=== PATIENT | male | born 1970 | race American Indian/Alaskan Native ===

== ENCOUNTER 2021-10-15 00:29 | Inpatient (IN) | payer BC ==
--- NOTE | 2021-10-15 01:23 | Emergency Department Report ---
HPI - General Chief Complaint: Chest Pain Time Seen by Provider: 10/15/21 00:48 - HPI HPI: Room 2 Patient is a 50-year-old male present with chief complaint of chest pain and palpitations. Patient states he was at rest watching television when he sudd enly developed shortness of breath palpitations and twisting pain in the middle of his chest. The patient was found to be tachycardic at 169 bpm by his . EMS was called and arrived on scene to find the patient in SVT. Patient broke the SVT by performing vagal maneuvers with EMS. In the ED the patient states he feels mostly improved but still has occasional intermittent discomfort in his ch est. Patient denies history of SVT in the past ED Past Medical Hx - Past Medical History Previous Medical History?: Yes Hx Heart Attack/AMI: Yes Hx Diabetes: Yes Additional medical history: heart murmur - Surgical History Past Surgical History?: No - Family History Family history: no significant - Social History Smoking Status: Never Smoker Substance Use Type: None (Denies illicit drug use) - Medications Home Medications: Home Medications Medication Instructions Recorded Confirmed Last Taken Type metFORMIN [Glucophage] 500 mg PO QDAY #31 tablet 11/17/15 Unknown Rx ED Review of Systems ROS: Stated complaint: CHEST PAIN Other details as noted in HPI Constitutional: no symptoms reported Eyes: denies: eye pain ENT: denies: throat pain Respiratory: cough, shortness of breath Cardiovascular: chest pain Endocrine: no symptoms reported Gastrointestinal: denies: vomiting Genitourinary: denies: dysuria Musculoskeletal: denies: back pain Neurological: denies: headache Physical Exam - Physical Exam Vital Signs: Vital Signs 10/15/21 00:30 Temperature 97.6 F Pulse Rate 108 H Respiratory 18 Rate Blood Pressure 149/99 O2 Sat by Pulse 98 Oximetry Physical Exam: GENERAL: The patient is well-developed well-nourished male lying on stretcher not appearing to be in acute distress. [] HEENT: Normocephalic. Atraumatic. Extraocular motions are intact. Patient has moist mucous membranes. NECK: Supple. Trachea midline CHEST/LUNGS: Clear to auscultation. There is no respiratory distress noted. HEART/CARDIOVASCULAR: Regular. There is no tachycardia. There is no gallop rub or murmur. ABDOMEN: Abdomen is soft, nontender. Patient has normal bowel sounds. There is no abdominal distention. SKIN: There is no rash. There is no edema. There is no diaphoresis. NEURO: The patient is awake, alert, and oriented. The patient is cooperative. The patient has no focal neurologic deficits. The patient has normal speech. GCS 15 MUSCULOSKELETAL:There is no evidence of acute injury. ED Course Vital Signs 10/15/21 00:30 Temperature 97.6 F Pulse Rate 108 H Respiratory 18 Rate Blood Pressure 149/99 O2 Sat by Pulse 98 Oximetry ED Medical Decision Making - Lab Data Result diagrams: 10/15/21 01:27 10/15/21 01:27 Laboratory Tests 10/15/21 10/15/21 10/15/21 01:27 01:27 01:27 WBC 7.2 RBC 4.48 Hgb 12.7 Hct 38.9 MCV 87 MCH 28 MCHC 33 RDW 13.6 Plt Count 242 Lymph % (Auto) 26.0 Rains % (Auto) 5.5 Eos % (Auto) 3.4 Baso % (Auto) 0.4 Lymph # (Auto) 1.9 Rains # (Auto) 0.4 Eos # (Auto) 0.2 Baso # (Auto) 0.0 Seg Neutrophils % 64.7 Seg Neutrophils # 4.6 Sodium 141 Potassium 3.6 Chloride 103.2 Carbon Dioxide 29 Anion Gap 12 BUN 14 Creatinine 1.2 Estimated GFR > 60 BUN/Creatinine Ratio 12 Glucose 124 H Calcium 9.3 Magnesium 1.70 Total Creatine Kinase 136 CK-MB (CK-2) 1.3 CK-MB (CK-2) Rel Index 0.9 Troponin T < 0.010 NT-Pro-B Natriuret Pep 70.73 TSH 2.690 Free T4 1.10 Urine Opiates Screen Urine Methadone Screen Ur Barbiturates Screen Ur Phencyclidine Scrn Ur Amphetamines Screen U Benzodiazepines Scrn Urine Cocaine Screen U Marijuana (THC) Screen Drugs of Abuse Note 10/15/21 02:00 WBC RBC Hgb Hct MCV MCH MCHC RDW Plt Count Lymph % (Auto) Rains % (Auto) Eos % (Auto) Baso % (Auto) Lymph # (Auto) Rains # (Auto) Eos # (Auto) Baso # (Auto) Seg Neutrophils % Seg Neutrophils # Sodium Potassium Chloride Carbon Dioxide Anion Gap BUN Creatinine Estimated GFR BUN/Creatinine Ratio Glucose Calcium Magnesium Total Creatine Kinase CK-MB (CK-2) CK-MB (CK-2) Rel Index Troponin T NT-Pro-B Natriuret Pep TSH Free T4 Urine Opiates Screen Presumptive negative Urine Methadone Screen Presumptive negative Ur Barbiturates Screen Presumptive negative Ur Phencyclidine Scrn Presumptive negative Ur Amphetamines Screen Presumptive negative U Benzodiazepines Scrn Presumptive negative Urine Cocaine Screen Presumptive negative U Marijuana (THC) Screen Presumptive negative Drugs of Abuse Note Disclamer - EKG Data -: EKG Interpreted by Me EKG shows normal: sinus rhythm Rate: tachycardia (100 bpm) - EKG Data When compared to previous EKG there are: previous EKG unavailable Interpretation: nonspecific ST-T wave janey (Flattened T waves in leads aVL, 1) - Radiology Data Radiology results: report reviewed (Chest x-ray), image reviewed (Chest x-ray) interpreted by me: Chest x-ray-no definite focal infiltrates, no pneumothorax [facility] [address] [place] [address] XRay Report Signed Patient: MERA PABLO MR#: [id number] : 1970 Acct:[id number] Age/Sex: 50 / M ADM Date: 10/15/21 Loc: ED Attending Dr: Ordering Physician: KIRSTIN PINEDA MD Date of Service: 10/15/21 Procedure(s): XR chest 1V ap Accession Number(s): [id number] cc: KIRSTIN PINEDA MD Fluoro Time In Minutes: CHEST 1 VIEW INDICATION / CLINICAL INFORMATION: chest pain. COMPARISON: None available. FINDINGS: SUPPORT DEVICES: None. HEART / MEDIASTINUM: Heart size is within normal limits. Mediastinal contour demonstrates no significant abnormality. LUNGS / PLEURA: No significant pulmonary abnormality. BONES: Remote right fifth rib fracture is suggested. ADDITIONAL FINDINGS: No significant additional findings. IMPRESSION: 1. No active cardiopulmonary disease. Signer Name: Taurus Eddy II, MD Signed: 10/15/2021 1:59 AM Workstation Name: [id number] Transcribed By: PARTH Dictated By: TAURUS EDDY II, MD Electronically Authenticated By: TAURUS EDDY II, MD Signed Date/Time: 10/15/21158 DD/ 8 TD/TT: - Differential Diagnosis SVT, ACS Critical care attestation.: If time is entered above; I have spent that time in minutes in the direct care of this critically ill patient, excluding procedure time. ED Disposition Clinical Impression: Paroxysmal SVT (supraventricular tachycardia), Chest pain Disposition: ADMITTED INPATIENT Is pt being admited?: Yes Does the pt Need Aspirin: Yes Condition: Fair Instructions: Nonspecific Chest Pain, Adult Time of Disposition: 02:44 (Care transferred to hospitalist (Dr. Kruger)) Heart Score - HEART Score History: Moderately suspicious EKG: Non-specific Age: 45-65 Risk factors: 1-2 risk factors Troponin: < normal limit HEART Score: 4 - EKG Read Time Time EKG Completed: 01:08 EKG Read Time: 01:22
[2021-10-15 01:51] LABS: Basophils % (Auto) 0.4 % (0.0-1.8); Eosinophils # (Auto) 0.2 K/mm3 (0.0-0.4); Eosinophils % (Auto) 3.4 % (0.0-4.3); Hematocrit 38.9 % (35.5-45.6); Hemoglobin 12.7 gm/dl (11.8-15.2); Lymphocytes # (Auto) 1.9 K/mm3 (1.2-5.4); Mean Corpuscular HGB Conc 33 % (32-34); Mean Corpuscular Volume 87 fl (84-94); Monocytes # (Auto) 0.4 K/mm3 (0.0-0.8); Monocytes % (Auto) 5.5 % (0.0-7.3); Platelet Count 242 K/mm3 (140-440); Red Blood Count 4.48 M/mm3 (3.65-5.03); Red Cell Distribution Width 13.6 % (13.2-15.2)
--- NOTE | 2021-10-15 02:03 | XRay Report ---
CHEST 1 VIEW INDICATION / CLINICAL INFORMATION: chest pain. COMPARISON: None available. FINDINGS: SUPPORT DEVICES: None. HEART / MEDIASTINUM: Heart size is within normal limits. Mediastinal contour demonstrates no signific ant abnormality. LUNGS / PLEURA: No significant pulmonary abnormality. BONES: Remote right fifth rib fracture is suggested. ADDITIONAL FINDINGS: No significant additional findings. IMPRESSION: 1. No active cardiopulmonary disease. Signer Name: Orville Howe II, MD Signed: 10/15/2021 1:59 AM Workstation Name: [id number]
[2021-10-15 02:09] LABS: BUN/Creatinine Ratio 12; Blood Urea Nitrogen 14 mg/dL (9-20); Calcium 9.3 mg/dL (8.4-10.2); Creatine Kinase MB 1.3 ng/mL (0.0-4.0); Hemolysis Index 7
[2021-10-15 02:21] LABS: Amphetamine Screen,Urine PRESUMPTIVE NEGATIVE; Benzodiazepines Screen,Urine PRESUMPTIVE NEGATIVE; Cannabinoid Screen,Urine PRESUMPTIVE NEGATIVE; Cocaine Screen,Urine PRESUMPTIVE NEGATIVE; Methadone Screen,Urine PRESUMPTIVE NEGATIVE; Opiate Screen,Urine PRESUMPTIVE NEGATIVE
[2021-10-15 02:30] LABS: Free T4 (Free Thyroxine) 1.1 ng/dL (0.76-1.46)
[2021-10-15] MEDS ORDERED: ACETAMINOPHEN 325 MG TAB PO PRN (05:09)
[2021-10-15] MEDS ORDERED: DEXTROSE 50% IN WATER (25GM) 50 ML SYRINGE IV PRN (05:09)
[2021-10-15] MEDS ORDERED: NITROGLYCERIN 0.4 MG TAB SUBL SL PRN (05:09)
[2021-10-15] MEDS ORDERED: MORPHINE 4 MG/1 ML INJ IV PRN (05:09)
[2021-10-15] MEDS ORDERED: traMADol 50 MG TAB PO PRN (05:09)
--- NOTE | 2021-10-15 05:17 | History and Physical Report ---
History of Present Illness Date of examination: 10/15/21 Date of admission: 10/15/21 Chief complaint: Chest pain SVT History of present illness: 50-year-old male with history of IA, diabetes, heart murmur was brought to the emergency room because of chest pain and palpitations. Patient states he was at rest watching television when he suddenly developed shortness of breath palpitations and twisting pain in the middle of his chest. The patient was found to be tachycardic at 169 bpm by his . EMS was called and arrived on scene to find the patient in SVT. Patient broke the SVT by performing vagal maneuvers with EMS. In the ED the patient states he feels mostly improved but still has occasional intermittent discomfort in his chest. Patient denies hist ory of SVT in the past In the emergency room initial troponin is negative troponin is 0.010 Past History Past Medical History: acute IA, diabetes, other (Heart murmur) Past Surgical History: No surgical history Social history: no significant social history Family history: hypertension Medications and Allergies Allergies Allergy/AdvReac Type Severity Reaction Status Date / Time No Known Allergies Allergy Unverified 11/16/15 19:50 Home Medications Medication Instructions Recorded Confirmed Last Taken Type metFORMIN [Glucophage] 500 mg PO QDAY #31 tablet 11/17/15 Unknown Rx Review of Systems All systems: negative Cardiovascular: chest pain, palpitations, shortness of breath, dyspnea on exertion Respiratory: shortness of breath, dyspnea on exertion Exam - Constitutional Vitals: Temp Pulse Resp BP Pulse Ox 97.6 F 105 H 20 144/82 100 10/15/21 00:30 10/15/21 04:30 10/15/21 04:30 10/15/21 04:30 10/15/21 04:30 General appearance: Present: no acute distress, well-nourished - EENT Eyes: Present: PERRL ENT: hearing intact, clear oral mucosa - Neck Neck: Present: supple, normal ROM - Respiratory Respiratory effort: normal Respiratory: bilateral: CTA - Cardiovascular Heart Sounds: Present: S1 & S2. Absent: rub, click - Extremities Extremities: pulses symmetrical, No edema Peripheral Pulses: within normal limits - Abdominal General gastrointestinal: Present: soft, non-tender, non-distended, normal bowel sounds Male genitourinary: Present: normal - Integumentary Integumentary: Present: clear, warm, dry - Musculoskeletal Musculoskeletal: gait normal, strength equal bilaterally - Psychiatric Psychiatric: appropriate mood/affect, intact judgment & insight - Neurologic Neurologic: CNII-XII intact, moves all extremities HEART Score - HEART Score EKG: Non-specific Age: 45-65 Risk factors: 1-2 risk factors Troponin: Troponin T < 0.010 ng/mL (0.00-0.029) 10/15/21: Troponin: < normal limit Results - Labs CBC & Chem 7: 10/15/21 01:27 10/15/21: Labs: Laboratory Last Values WBC 7.2 K/mm3 (4.5-11.0) 10/15/21: RBC 4.48 M/mm3 (3.65-5.03) 10/15/21: Hgb 12.7 gm/dl (11.8-15.2) 10/15/21: Hct 38.9 % (35.5-45.6) 10/15/21: MCV 87 fl (84-94) 10/15/21: MCH 28 pg (28-32) 10/15/21: MCHC 33 % (32-34) 10/15/21: RDW 13.6 % (13.2-15.2) 10/15/21: Plt Count 242 K/mm3 (140-440) 10/15/21: Lymph % (Auto) 26.0 % (13.4-35.0) 10/15/21: Dickinson % (Auto) 5.5 % (0.0-7.3) 10/15/21: Eos % (Auto) 3.4 % (0.0-4.3) 10/15/21: Baso % (Auto) 0.4 % (0.0-1.8) 10/15/21: Lymph # (Auto) 1.9 K/mm3 (1.2-5.4) 10/15/21: Dickinson # (Auto) 0.4 K/mm3 (0.0-0.8) 10/15/21: Eos # (Auto) 0.2 K/mm3 (0.0-0.4) 10/15/21 01:27 Baso # (Auto) 0.0 K/mm3 (0.0-0.1) 10/15/21 01:27 Seg Neutrophils % 64.7 % (40.0-70.0) 10/15/21 01:27 Seg Neutrophils # 4.6 K/mm3 (1.8-7.7) 10/15/21 01:27 Sodium 141 mmol/L (137-145) 10/15/21 01:27 Potassium 3.6 mmol/L (3.6-5.0) 10/15/21 01:27 Chloride 103.2 mmol/L (98-107) 10/15/21 01:27 Carbon Dioxide 29 mmol/L (22-30) 10/15/21 01:27 Anion Gap 12 mmol/L 10/15/21 01:27 BUN 14 mg/dL (9-20) 10/15/21 01:27 Creatinine 1.2 mg/dL (0.8-1.3) 10/15/21 01:27 Estimated GFR > 60 ml/min 10/15/21 01:27 BUN/Creatinine Ratio 12 % 10/15/21 01:27 Glucose 124 mg/dL (75-100) H 10/15/21 01:27 Calcium 9.3 mg/dL (8.4-10.2) 10/15/21 01:27 Magnesium 1.70 mg/dL (1.7-2.3) 10/15/21 01:27 Total Creatine Kinase 136 units/L (55-170) 10/15/21 01:27 CK-MB (CK-2) 1.3 ng/mL (0.0-4.0) 10/15/21 01:27 CK-MB (CK-2) Rel Index 0.9 (0-4) 10/15/21 01:27 Troponin T < 0.010 ng/mL (0.00-0.029) 10/15/21 01:27 NT-Pro-B Natriuret Pep 70.73 pg/mL (0-900) 10/15/21 01:27 TSH 2.690 mlU/mL (0.270-4.200) 10/15/21 01:27 Free T4 1.10 ng/dL (0.76-1.46) 10/15/21 01:27 Urine Opiates Screen Presumptive negative 10/15/21 02:00 Urine Methadone Screen Presumptive negative 10/15/21 02:00 Ur Barbiturates Screen Presumptive negative 10/15/21 02:00 Ur Phencyclidine Scrn Presumptive negative 10/15/21 02:00 Ur Amphetamines Screen Presumptive negative 10/15/21 02:00 U Benzodiazepines Scrn Presumptive negative 10/15/21 02:00 Urine Cocaine Screen Presumptive negative 10/15/21 02:00 U Marijuana (THC) Screen Presumptive negative 10/15/21 02:00 Drugs of Abuse Note Disclamer 10/15/21 02:00 - Imaging and Cardiology Chest x-ray: report reviewed Assessment and Plan VTE prophylaxis?: Chemical Plan of care discussed with patient/family: Yes - Patient Problems (1) ACS (acute coronary syndrome) Current Visit: Yes Status: Acute Plan to address problem: Admit the patient to the medical telemetry. Aspirin 325 mg p.o. daily. Lipitor 40 mg p.o. daily. Nitroglycerin as needed. Metoprolol 25 mg p.o. twice daily. We will do the serial cardiac enzymes. Echocardiogram. Cardiology evaluation (2) Diabetes Current Visit: Yes Status: Acute Plan to address problem: Accu-Chek every 6 hours with Humalog moderate dose coverage. Diabetic education. Recheck BMP in the morning (3) CAD (coronary artery disease) Current Visit: Yes Status: Acute Plan to address problem: Aspirin 325 mg p.o. daily. Lipitor 40 mg p.o. daily. Nitroglycerin as needed. Metoprolol 25 mg p.o. twice daily. We will do the serial cardiac enzymes. Echocardiogram. Cardiology evaluation (4) Paroxysmal SVT (supraventricular tachycardia) Current Visit: Yes Status: Acute Plan to address problem: Metoprolol 25 mg p.o. twice daily. We will do the serial cardiac enzymes. Echocardiogram. Cardiology evaluation (5) DVT prophylaxis Current Visit: Yes Status: Acute Plan to address problem: Heparin 5000 units subcu every 12 hours for DVT prophylaxis. Protonix 40 mg p.o. daily for GI prophylaxis. Patient is a full code
[2021-10-15] MEDS: INSULIN LISPRO 100 UNIT/ML SUB-Q SCH ×4 (06:00→23:48)
[2021-10-15] MEDS: SODIUM CHLORIDE 0.9% 1000 ML 1,000 ML IV SCH ×2 (06:13→14:37)
[2021-10-15 07:44] LABS: BUN/Creatinine Ratio 12; Blood Urea Nitrogen 13 mg/dL (9-20); Calcium 8.4 mg/dL (8.4-10.2); Hemolysis Index 3
[2021-10-15 07:49] LABS: Basophils % (Auto) 0.6 % (0.0-1.8); Eosinophils # (Auto) 0.3 K/mm3 (0.0-0.4); Hematocrit 36.8 % (35.5-45.6); Lymphocytes # (Auto) 1.5 K/mm3 (1.2-5.4); Lymphocytes % (Auto) 22.2 % (13.4-35.0); Mean Corpuscular HGB Conc 33 % (32-34); Mean Corpuscular Volume 86 fl (84-94); Monocytes # (Auto) 0.5 K/mm3 (0.0-0.8); Monocytes % (Auto) 7.1 % (0.0-7.3); Platelet Count 227 K/mm3 (140-440); Red Blood Count 4.28 M/mm3 (3.65-5.03); Red Cell Distribution Width 13.8 % (13.2-15.2)
[2021-10-15] MEDS: PANTOPRAZOLE 40 MG TAB PO SCH (08:41)
--- NOTE | 2021-10-15 09:45 | Progress Note ---
Assessment and Plan Assessment and plan: History of Present Illness: 50-year-old male with history of CO, diabetes, heart murmur was brought to the emergency room because of chest pain and palpitations. Patient states he was at rest watching television when he suddenly developed shortness of breath palpitations and twisting pain in the middle of his chest. The patient was found to be tachycardic at 169 bpm by his . EMS was called and arrived on scene to find the patient in SVT. Patient broke the SVT by performing vagal maneuvers with EMS. In the ED the patient states he feels mostly improved but still has occasional intermittent discomfort in his chest. Patient denies history of SVT in the past Hospital Course: 10/15: Trend troponin, pending echo ordered. Will follow for cardiology eval. Possible discharge tomorrow a.m. Assessment and Plan: #Paroxysmal SVT (supraventricular tachycardia) Current Visit: Yes Status: Acute Plan to address problem: Metoprolol 25 mg p.o. twice daily. We will do the serial cardiac enzymes. Echocardiogram. Cardiology evaluation #ACS (acute coronary syndrome) Current Visit: Yes Status: Acute Plan to address problem: Admit the patient to the medical telemetry. Aspirin 81 mg p.o. daily. Lipitor 40 mg p.o. daily. Nitroglycerin as needed. Metoprolol 25 mg p.o. twice daily. Troponin 0.01, trend every 6h Echocardiogram. Cardiology evaluation #CAD (coronary artery disease) Current Visit: Yes Status: Acute Plan to address problem: Medications as above Serial cardiac enzymes. Echocardiogram. Cardiology evaluation #History of CO #Type 2 Diabetes with Hyperglycemia - hemoglobin A1c: - home regimen: Unknown - current regimen: Moderate SSI - blood glucose goal 140-180 while inpatient - continue to monitor #History of heart murmur #Advance care planning Disease education conducted, care plan discussed, diagnoses discussed, prognosis discussed, patient is full code, patient acknowledges understanding and agree with care plan, discussed about patient clinical course and answered all questions to satisfaction. +30 minutes. +30 minutes. #Coordination of CARE time: 30 minutes. Total visit time equals 30 or more minutes with greater than 50% spent [id number] on coordination of care and counseling. History Interval history: No acute complaints Hospitalist Physical - Physical exam Narrative exam: Physical Exam: VITAL SIGNS: Reviewed. GENERAL: The patient appears normally developed, Vital signs as documented. HEAD: No signs of head trauma. EYES: Pupils are equal. Extraocular motions intact. EARS: Hearing grossly intact. MOUTH: Oropharynx is normal. NECK: No adenopathy, no JVD. CHEST: Chest with clear breath sounds bilaterally. No wheezes, rales, or rhonchi. CARDIAC: Regular rate and rhythm. S1 and S2, without murmurs, gallops, or rubs. VASCULAR: No Edema. Peripheral pulses normal and equal in all extremities. ABDOMEN: Soft, non tender and non distended. No rebound or guarding, and no masses palpated. Bowel Sounds normal. MUSCULOSKELETAL: Good range of motion of all major joints. Extremities without clubbing, cyanosis or edema. NEUROLOGIC EXAM: Alert and oriented x 4. no focal sensory or strength deficits. PSYCHIATRIC: Mood normal. SKIN: detail exam as documented in skin assessment - Constitutional Vitals: Temp Pulse Resp BP Pulse Ox 98.6 F 90 19 145/91 98 10/15/21 08:43 10/15/21 08:43 10/15/21 08:43 10/15/21 08:43 10/15/21 08:43 General appearance: Present: no acute distress, well-nourished HEART Score - HEART Score EKG: Non-specific Age: 45-65 Risk factors: 1-2 risk factors Troponin: Troponin T < 0.010 ng/mL (0.00-0.029) 10/15/21 01:27 Troponin: < normal limit Results - Labs CBC & Chem 7: 10/15/21 07:11 10/15/21 07:11 Labs: Laboratory Last Values WBC 6.9 K/mm3 (4.5-11.0) 10/15/21 07:11 RBC 4.28 M/mm3 (3.65-5.03) 10/15/21 07:11 Hgb 12.0 gm/dl (11.8-15.2) 10/15/21 07:11 Hct 36.8 % (35.5-45.6) 10/15/21 07:11 MCV 86 fl (84-94) 10/15/21 07:11 MCH 28 pg (28-32) 10/15/21 07:11 MCHC 33 % (32-34) 10/15/21 07:11 RDW 13.8 % (13.2-15.2) 10/15/21 07:11 Plt Count 227 K/mm3 (140-440) 10/15/21 07:11 Lymph % (Auto) 22.2 % (13.4-35.0) 10/15/21 07:11 Evans % (Auto) 7.1 % (0.0-7.3) 10/15/21 07:11 Eos % (Auto) 4.0 % (0.0-4.3) 10/15/21 07:11 Baso % (Auto) 0.6 % (0.0-1.8) 10/15/21 07:11 Lymph # (Auto) 1.5 K/mm3 (1.2-5.4) 10/15/21 07:11 Evans # (Auto) 0.5 K/mm3 (0.0-0.8) 10/15/21 07:11 Eos # (Auto) 0.3 K/mm3 (0.0-0.4) 10/15/21 07:11 Baso # (Auto) 0.0 K/mm3 (0.0-0.1) 10/15/21 07:11 Seg Neutrophils % 66.1 % (40.0-70.0) 10/15/21 07:11 Seg Neutrophils # 4.6 K/mm3 (1.8-7.7) 10/15/21 07:11 Sodium 142 mmol/L (137-145) 10/15/21 07:11 Potassium 3.6 mmol/L (3.6-5.0) 10/15/21 07:11 Chloride 105.7 mmol/L (98-107) 10/15/21 07:11 Carbon Dioxide 29 mmol/L (22-30) 10/15/21 07:11 Anion Gap 11 mmol/L 10/15/21 07:11 BUN 13 mg/dL (9-20) 10/15/21 07:11 Creatinine 1.1 mg/dL (0.8-1.3) 10/15/21 07:11 Estimated GFR > 60 ml/min 10/15/21 07:11 BUN/Creatinine Ratio 12 % 10/15/21 07:11 Glucose 131 mg/dL (75-100) H 10/15/21 07:11 Calcium 8.4 mg/dL (8.4-10.2) 10/15/21 07:11 Magnesium 1.70 mg/dL (1.7-2.3) 10/15/21 01:27 Total Creatine Kinase 136 units/L (55-170) 10/15/21 01:27 CK-MB (CK-2) 1.3 ng/mL (0.0-4.0) 10/15/21 01:27 CK-MB (CK-2) Rel Index 0.9 (0-4) 10/15/21 01:27 Troponin T < 0.010 ng/mL (0.00-0.029) 10/15/21 01:27 NT-Pro-B Natriuret Pep 70.73 pg/mL (0-900) 10/15/21 01:27 TSH 2.690 mlU/mL (0.270-4.200) 10/15/21 01: Free T4 1.10 ng/dL (0.76-1.46) 10/15/21 01:27 Urine Opiates Screen Presumptive negative 10/15/21 02:00 Urine Methadone Screen Presumptive negative 10/15/21 02:00 Ur Barbiturates Screen Presumptive negative 10/15/21 02:00 Ur Phencyclidine Scrn Presumptive negative 10/15/21 02:00 Ur Amphetamines Screen Presumptive negative 10/15/21 02:00 U Benzodiazepines Scrn Presumptive negative 10/15/21 02:00 Urine Cocaine Screen Presumptive negative 10/15/21 02:00 U Marijuana (THC) Screen Presumptive negative 10/15/21 02:00 Drugs of Abuse Note Disclamer 10/15/21 02:00 Active Medications - Current Medications Current Medications: Generic Name Dose Route Start Last Admin Trade Name Freq PRN Reason Stop Dose Admin Acetaminophen 650 mg 10/15/21 05:09 Acetaminophen 325 Mg Tab PO Q6H PRN Pain, Mild (1-3) Aspirin 325 mg 10/16/21 10:00 Aspirin Ec 325 Mg Tab PO QDAY SHYAM Atorvastatin Calcium 40 mg 10/15/21 22:00 Atorvastatin 40 Mg Tab PO QHS SHYAM Dextrose 50 ml 10/15/21 05:09 Dextrose 50% In Water (25gm) 50 Ml Syringe IV Q30MIN PRN Hypoglycemia Protocol Heparin Sodium (Porcine) 5,000 unit 10/15/21 10:00 Heparin 5,000 Unit/1 Ml Vial SUB-Q Q12HR SHYAM Sodium Chloride 1,000 mls @ 100 mls/hr 10/15/21 05:15 10/15/21 06:13 Nacl 0.9% 1000 Ml IV 100 mls/hr DIRECT SHYAM Administration Insulin Human Lispro 0 unit 10/15/21 06:00 10/15/21 06:00 Insulin Lispro 100 Unit/Ml SUB-Q Not Given Q6HR [facility] Protocol Metoprolol Tartrate 25 mg 10/15/21 10:00 Metoprolol Tartrate 25 Mg Tab PO BID [facility] Morphine Sulfate 2 mg 10/15/21 05:09 Morphine 4 Mg/1 Ml Inj IV Q5MIN PRN Chest Pain unrelieved by NTG Nitroglycerin 0.4 mg 10/15/21 05:09 Nitroglycerin 0.4 Mg Tab Subl SL Q5M PRN Chest Pain Pantoprazole Sodium 40 mg 10/15/21 07:30 10/15/21 08:41 Pantoprazole 40 Mg Tab PO 40 mg QDAC SHYAM Administration Sodium Chloride 10 ml 10/15/21 05:09 Sodium Chloride 0.9% 10 Ml Flush Syringe IV PRN PRN LINE FLUSH Tramadol HCl 50 mg 10/15/21 05:09 Tramadol 50 Mg Tab PO Q6H PRN Pain, Moderate (4-6)
[2021-10-15] MEDS: METOPROLOL TARTRATE 25 MG TAB PO SCH ×2 (10:26→21:30)
[2021-10-15] MEDS: HEPARIN 5,000 UNIT/1 ML VIAL SUB-Q SCH ×2 (10:26→21:30)
[2021-10-15] MEDS: ASPIRIN EC 81 MG TAB PO SCH (11:14)
--- NOTE | 2021-10-15 12:35 | Consultation ---
History of Present Illness Consult date: 10/15/21 Requesting physician: PJ SERNA Consult reason: other (SVT) History of present illness: Pt is a 50-year-old AA male with a hx of VT (in his 20s per pt report) and DM2 who presented with complaints of palpitations. Pt states he was sitting on the couch watching TV with his daughter when his heart suddenly started "racing and fluttering." Associated with SOB. He also reports an intermittent pain in the center of his chest which he describes as "someone twisting a knife." His reported his HR was 169bpm. The palpitations lasted approximately 45min before resolving. Per ER documentation, pt was in SVT upon initial eval by EMS, which was terminated via vagal maneuvers according to documentation. ECG upon arrival reveals sinus rhythm with a rate of 100bpm. Pt has continued to experience chest pain intermittently since arrival, with each episode lasting only a few min. Pt is previously unknown to our practice. Of note, pt does report being told he had a murmur in childhood but is unaware of any underlying valvulopathy. He is also unsure if he underwent coronary angiography at the time of his reported VT in his 20s. He states "I was in the hospital for a few weeks." Past History Past Medical History: acute VT, diabetes, other (TIA, heart murmur). denies: a trial fib, arrhythmia, DVT, heart failure, hypertension, hyperlipidemia, liver disease, pulmonary embolism, renal failure, seizures Past Surgical History: No surgical history Social history: , lives with family. denies: smoking, alcohol abuse Family history: hypertension Medications and Allergies Allergies Allergy/AdvReac Type Severity Reaction Status Date / Time No Known Allergies Allergy Unverified 11/16/15 19:50 Home Medications Medication Instructions Recorded Confirmed Last Taken Type metFORMIN [Glucophage] 500 mg PO QDAY #31 tablet 11/17/15 Unknown Rx Active Meds: Active Medications Acetaminophen (Acetaminophen 325 Mg Tab) 650 mg PO Q6H PRN PRN Reason: Pain, Mild (1-3) Aspirin (Aspirin Ec 81 Mg Tab) 81 mg PO QDAY [facility] Last Admin: 10/15/21 11:14 Dose: 81 mg Atorvastatin Calcium (Atorvastatin 40 Mg Tab) 40 mg PO QHS [facility] Dextrose (Dextrose 50% In Water (25gm) 50 Ml Syringe) 50 ml IV Q30MIN PRN; Protocol PRN Reason: Hypoglycemia Heparin Sodium (Porcine) (Heparin 5,000 Unit/1 Ml Vial) 5,000 unit SUB-Q Q12HR [facility] Last Admin: 10/15/21 10:26 Dose: 5,000 unit Sodium Chloride (Nacl 0.9% 1000 Ml) 1,000 mls @ 100 mls/hr IV DIRECT [facility] Last Admin: 10/15/21 06:13 Dose: 100 mls/hr Insulin Human Lispro (Insulin Lispro 100 Unit/Ml) 0 unit SUB-Q Q6HR [facility]; Protocol Last Admin: 10/15/21 06:00 Dose: Not Given Metoprolol Tartrate (Metoprolol Tartrate 25 Mg Tab) 25 mg PO BID [facility] Last Admin: 10/15/21 10:26 Dose: 25 mg Morphine Sulfate (Morphine 4 Mg/1 Ml Inj) 2 mg IV Q5MIN PRN PRN Reason: Chest Pain unrelieved by NTG Nitroglycerin (Nitroglycerin 0.4 Mg Tab Subl) 0.4 mg SL Q5M PRN PRN Reason: Chest Pain Pantoprazole Sodium (Pantoprazole 40 Mg Tab) 40 mg PO QDAC [facility] Last Admin: 10/15/21 08:41 Dose: 40 mg Sodium Chloride (Sodium Chloride 0.9% 10 Ml Flush Syringe) 10 ml IV PRN PRN PRN Reason: LINE FLUSH Tramadol HCl (Tramadol 50 Mg Tab) 50 mg PO Q6H PRN PRN Reason: Pain, Moderate (4-6) Review of Systems Constitutional: no fever, no chills, no sweats Ears, nose, mouth and throat: no nasal congestion, no sore throat Cardiovascular: chest pain, palpitations, rapid/irregular heart beat, no edema, no syncope, no lightheadedness, no shortness of breath, no dyspnea on exertion, no claudication Respiratory: no cough, no shortness of breath, no dyspnea on exertion Gastrointestinal: no abdominal pain, no nausea, no vomiting, no diarrhea, no constipation Genitourinary Male: no dysuria Musculoskeletal: no neck stiffness, no neck pain, no myalgias Integumentary: no rash, no wounds Neurological: no paralysis, no numbness, no tingling, no seizures, no syncope, no vertigo, no headaches Endocrine: no cold intolerance, no heat intolerance Hematologic/Lymphatic: no easy bruising, no easy bleeding Allergic/Immunologic: no anaphylaxis Physical Examination Vital Signs Temp Pulse Resp BP Pulse Ox 97.6 F 108 H 18 149/99 98 10/15/21 00:30 10/15/21 00:30 10/15/21 00:30 10/15/21 00:30 10/15/21 00:30 General appearance: no acute distress HEENT: Positive: EOMI, Normocephaly Neck: Positive: neck supple, trachea midline. Negative: JVD/HJR Cardiac: Positive: Reg Rate and Rhythm, S1/S2. Negative: Audible Murmur Lungs: Positive: clear to auscultation Neuro: Positive: Grossly Intact Abdomen: Positive: Soft. Negative: Tender Skin: Negative: Rash Musculoskeletal: No Pain Extremities: Present: upper extr. pulses, warm. Absent: edema Results 10/15/21 07:11 10/15/21 07:11 Cardiac Enzymes 10/15/21 Range/Units 01:27 CK-MB (CK-2) 1.3 (0.0-4.0) ng/mL CBC 10/15/21 10/15/21 Range/Units 01:27 07:11 WBC 7.2 6.9 (4.5-11.0) K/mm3 RBC 4.48 4.28 (3.65-5.03) M/mm3 Hgb 12.7 12.0 (11.8-15.2) gm/dl Hct 38.9 36.8 (35.5-45.6) % Plt Count 242 227 (140-440) K/mm3 Lymph # (Auto) 1.9 1.5 (1.2-5.4) K/mm3 Cooper # (Auto) 0.4 0.5 (0.0-0.8) K/mm3 Eos # (Auto) 0.2 0.3 (0.0-0.4) K/mm3 Baso # (Auto) 0.0 0.0 (0.0-0.1) K/mm3 Comprehensive Metabolic Panel 10/15/21 10/15/21 Range/Units 01:27 07:11 Sodium 141 142 (137-145) mmol/L Potassium 3.6 3.6 (3.6-5.0) mmol/L Chloride 103.2 105.7 (98-107) mmol/L Carbon Dioxide 29 29 (22-30) mmol/L BUN 14 13 (9-20) mg/dL Creatinine 1.2 1.1 (0.8-1.3) mg/dL Glucose 124 H 131 H (75-100) mg/dL Calcium 9.3 8.4 (8.4-10.2) mg/dL - Imaging and Cardiology Echo: pending EKG: report reviewed, image reviewed - EKG Interpretation EKG: no acute changes EKG interpretations - Telemetry EKG Rhythm: Sinus Rhythm - EKG Sinus rhythms and dysrhythmias: sinus tachycardia Assessment and Plan Assessment: SVT Chest Pain H/o VT (in his 20s per pt report) ?CAD (pt is unsure of dx and/or any prior stent placement) DM2 H/o TIA (~2003 per pt report) Plan: Review of tele strips on chart confirms SVT. Currently maintaining sinus rhythm. Echo pending. Continue tele monitoring. Agree with Lopressor 25mg BID. Thyroid function and electrolytes within normal limits. Tn neg x 1. ECG reveals NSR w/rate of 100bpm, no acute ischemic changes. Trend cardiac enzymes. Pt seen in conjunction with Dr. Copeland, who agrees with the assessment and plan of care. - Patient Problems (1) SVT (supraventricular tachycardia) Current Visit: Yes Status: Acute (2) Chest pain Current Visit: Yes Status: Acute
[2021-10-15 14:38] LABS: Chol/HDL Ratio 2.59 %
[2021-10-16] MEDS: SODIUM CHLORIDE 0.9% 1000 ML 1,000 ML IV SCH (00:22)
[2021-10-16] MEDS: INSULIN LISPRO 100 UNIT/ML SUB-Q SCH ×4 (07:32→21:22)
[2021-10-16] MEDS: HEPARIN 5,000 UNIT/1 ML VIAL SUB-Q SCH ×2 (09:37→21:23)
[2021-10-16] MEDS: PANTOPRAZOLE 40 MG TAB PO SCH (09:37)
[2021-10-16] MEDS: METOPROLOL TARTRATE 25 MG TAB PO SCH ×2 (09:37→21:22)
[2021-10-16] MEDS: ASPIRIN EC 81 MG TAB PO SCH (09:37)
--- NOTE | 2021-10-16 09:38 | Progress Note ---
Assessment and Plan Assessment: SVT Chest Pain H/o AZ (in his 20s per pt report) ?CAD (pt is unsure of dx and/or any prior stent placement) DM2 H/o TIA (~2003 per pt report) Plan: Echo pending. Plan for Lexiscan stress MPI in AM. NPO after midnight. Review of tele strips from EMS confirms SVT. Currently maintaining NSR. Continue PO Lopressor 25mg BID. Thyroid function and electrolytes within normal limits. Pt seen in conjunction with Dr. Copeland, who agrees with the assessment and plan of care. - Patient Problems (1) SVT (supraventricular tachycardia) Current Visit: Yes Status: Acute (2) Chest pain Current Visit: Yes Status: Acute Subjective Date of service: 10/16/21 Principal diagnosis: SVT Interval history: Reports 2 more brief episodes of chest pain since yesterday. Chest pain-free on assessment. No other complaints. SR 70s on tele, no events. Objective Vital Signs Temp Pulse Resp BP Pulse Ox 10/16/21 07:36 100 10/16/21 04:42 98.0 F 70 16 138/86 99 10/16/21 01:11 153/88 97 10/16/21 01:01 78 14 153/88 97 10/16/21 00:51 77 18 153/88 97 10/16/21 00:41 80 14 129/90 96 10/16/21 00:31 81 15 129/90 98 10/16/21 00:21 73 24 129/90 98 10/16/21 00:11 78 26 H 129/90 98 10/16/21 00:01 78 11 L 129/90 99 10/15/21 23:51 81 13 129/90 100 10/15/21 23:41 78 13 127/81 100 10/15/21 23:31 83 13 127/81 98 10/15/21 23:21 81 19 127/81 100 10/15/21 23:11 88 12 127/81 99 10/15/21 23:01 84 19 127/81 97 10/15/21 23:00 73 10/15/21 22:51 88 24 127/81 98 10/15/21 22:41 86 12 154/89 97 10/15/21 22:31 85 14 154/89 96 10/15/21 22:21 89 14 154/89 97 10/15/21 22:15 154/89 10/15/21 22:04 100 10/15/21 20:09 98.5 F 73 16 148/82 100 10/15/21 18:01 96/53 94 10/15/21 17:51 96/53 95 10/15/21 17:41 138/72 95 10/15/21 17:31 138/72 96 10/15/21 17:21 138/72 94 10/15/21 17:15 138/72 97 10/15/21 17:00 134/71 98 10/15/21 16:50 134/71 98 10/15/21 16:41 134/71 98 10/15/21 16:31 134/71 97 10/15/21 16:21 134/71 98 10/15/21 16:11 134/71 97 10/15/21 16:01 134/71 98 10/15/21 15:51 134/71 98 10/15/21 15:41 137/84 98 10/15/21 15:31 120/71 100 10/15/21 15:21 120/71 98 10/15/21 15:14 120/71 98 10/15/21 14:51 20 96 10/15/21 13:20 81 19 137/84 10/15/21 13:01 86 16 137/84 10/15/21 12:45 82 14 134/76 10/15/21 12:31 78 14 140/83 10/15/21 12:16 102 H 15 134/76 10/15/21 12:00 75 13 150/92 10/15/21 11:46 91 H 21 142/87 10/15/21 11:30 76 14 150/88 10/15/21 11:16 82 13 150/88 10/15/21 11:00 84 15 145/92 10/15/21 10:46 89 14 145/92 10/15/21 10:30 100 H 27 H 138/83 10/15/21 10:16 94 H 15 138/83 10/15/21 10:00 87 16 130/84 10/15/21 09:46 90 13 130/84 - Physical Examination General: No Apparent Distress HEENT: Positive: EOMI, Normocephaly Neck: Positive: neck supple, trachea midline. Negative: JVD/HJR Cardiac: Positive: Reg Rate and Rhythm, S1/S2 Lungs: Positive: clear to auscultation Neuro: Positive: Grossly Intact Abdomen: Positive: Soft. Negative: Tender Skin: Negative: Rash Musculoskeletal: No Pain Extremities: Present: upper extr. pulses, warm. Absent: edema - Labs and Meds Lipids 10/15/21 Range/Units 12:31 Triglycerides 31 (2-149) mg/dL Cholesterol 140 (50-199) mg/dL HDL Cholesterol 54 (40-59) mg/dL Cholesterol/HDL Ratio 2.59 % - Imaging and Cardiology EKG: report reviewed, image reviewed Pharmacologic stress test: pending Echo: pending - Telemetry EKG Rhythm: Sinus Rhythm - EKG Sinus rhythms and dysrhythmias: sinus tachycardia
--- NOTE | 2021-10-16 09:56 | Progress Note ---
Assessment and Plan Assessment and plan: History of Present Illness: 50-year-old male with history of OK, diabetes, heart murmur was brought to the emergency room because of chest pain and palpitations. Patient states he was at rest watching television when he suddenly developed shortness of breath palpitations and twisting pain in the middle of his chest. The patient was found to be tachycardic at 169 bpm by his . EMS was called and arrived on scene to find the patient in SVT. Patient broke the SVT by performing vagal maneuvers with EMS. In the ED the patient states he feels mostly improved but still has occasional intermittent discomfort in his chest. Patient denies history of SVT in the past Hospital Course: 10/15: Trend troponin, pending echo ordered. Will follow for cardiology eval. Possible discharge tomorrow a.m. 10/16: cardiology recommends NM stress, NPO midnight. Assessment and Plan: #Paroxysmal SVT (supraventricular tachycardia) Current Visit: Yes Status: Acute Plan to address problem: Metoprolol 25 mg p.o. twice daily. We will do the serial cardiac enzymes. Echocardiogram. Cardiology evaluation cardiology recommends NM stress, NPO midnight. #ACS (acute coronary syndrome) Current Visit: Yes Status: Acute Plan to address problem: Admit the patient to the medical telemetry. Aspirin 81 mg p.o. daily. Lipitor 40 mg p.o. daily. Nitroglycerin as needed. Metoprolol 25 mg p.o. twice daily. Troponin 0.01, trend every 6h Echocardiogram. Cardiology evaluation, cardiology recommends NM stress. NPO midnight. #CAD (coronary artery disease) Current Visit: Yes Status: Acute Plan to address problem: Medications as above Serial cardiac enzymes. Echocardiogram. Cardiology evaluation #History of OK #Type 2 Diabetes with Hyperglycemia - hemoglobin A1c: - home regimen: Unknown - current regimen: Moderate SSI - blood glucose goal 140-180 while inpatient - continue to monitor #History of heart murmur #Advance care planning Disease education conducted, care plan discussed, diagnoses discussed, prognosis discussed, patient is full code, patient acknowledges understanding and agree with care plan, discussed about patient clinical course and answered all questions to satisfaction. +30 minutes. +30 minutes. Total Time Spent with Patient (Minutes): 45 History Interval history: No acute complaints Hospitalist Physical - Physical exam Narrative exam: Physical Exam: VITAL SIGNS: Reviewed. GENERAL: The patient appears normally developed, Vital signs as documented. HEAD: No signs of head trauma. EYES: Pupils are equal. Extraocular motions intact. EARS: Hearing grossly intact. MOUTH: Oropharynx is normal. NECK: No adenopathy, no JVD. CHEST: Chest with clear breath sounds bilaterally. No wheezes, rales, or rhonchi. CARDIAC: Regular rate and rhythm. S1 and S2, without murmurs, gallops, or rubs. VASCULAR: No Edema. Peripheral pulses normal and equal in all extremities. ABDOMEN: Soft, non tender and non distended. No rebound or guarding, and no masses palpated. Bowel Sounds normal. MUSCULOSKELETAL: Good range of motion of all major joints. Extremities without clubbing, cyanosis or edema. NEUROLOGIC EXAM: Alert and oriented x 4. no focal sensory or strength deficits. PSYCHIATRIC: Mood normal. SKIN: detail exam as documented in skin assessment - Constitutional Vitals: Temp Pulse Resp BP Pulse Ox 98.0 F 70 16 138/86 100 10/16/21 04:42 10/16/21 04:42 10/16/21 04:42 10/16/21 04:42 10/16/21 07:36 General appearance: Present: no acute distress, well-nourished HEART Score - HEART Score EKG: Non-specific Age: 45-65 Risk factors: 1-2 risk factors Troponin: Troponin T < 0.010 ng/mL (0.00-0.029) 10/15/21 15:15 Troponin: < normal limit Results - Labs CBC & Chem 7: 10/15/21 07:11 10/15/21 07:11 Labs: Laboratory Last Values WBC 6.9 K/mm3 (4.5-11.0) 10/15/21 07:11 RBC 4.28 M/mm3 (3.65-5.03) 10/15/21 07:11 Hgb 12.0 gm/dl (11.8-15.2) 10/15/21 07:11 Hct 36.8 % (35.5-45.6) 10/15/21 07:11 MCV 86 fl (84-94) 10/15/21 07:11 MCH 28 pg (28-32) 10/15/21 07:11 MCHC 33 % (32-34) 10/15/21 07:11 RDW 13.8 % (13.2-15.2) 10/15/21 07:11 Plt Count 227 K/mm3 (140-440) 10/15/21 07:11 Lymph % (Auto) 22.2 % (13.4-35.0) 10/15/21 07:11 Worth % (Auto) 7.1 % (0.0-7.3) 10/15/21 07:11 Eos % (Auto) 4.0 % (0.0-4.3) 10/15/21 07:11 Baso % (Auto) 0.6 % (0.0-1.8) 10/15/21 07:11 Lymph # (Auto) 1.5 K/mm3 (1.2-5.4) 10/15/21 07:11 Worth # (Auto) 0.5 K/mm3 (0.0-0.8) 10/15/21 07:11 Eos # (Auto) 0.3 K/mm3 (0.0-0.4) 10/15/21 07:11 Baso # (Auto) 0.0 K/mm3 (0.0-0.1) 10/15/21 07:11 Seg Neutrophils % 66.1 % (40.0-70.0) 10/15/21 07:11 Seg Neutrophils # 4.6 K/mm3 (1.8-7.7) 10/15/21 07:11 Sodium 142 mmol/L (137-145) 10/15/21 07:11 Potassium 3.6 mmol/L (3.6-5.0) 10/15/21 07:11 Chloride 105.7 mmol/L (98-107) 10/15/21 07:11 Carbon Dioxide 29 mmol/L (22-30) 10/15/21 07:11 Anion Gap 11 mmol/L 10/15/21 07:11 BUN 13 mg/dL (9-20) 10/15/21 07:11 Creatinine 1.1 mg/dL (0.8-1.3) 10/15/21 07:11 Estimated GFR > 60 ml/min 10/15/21 07:11 BUN/Creatinine Ratio 12 % 10/15/21 07:11 Glucose 131 mg/dL (75-100) H 10/15/21 07:11 POC Glucose 97 mg/dL (70-105) 10/16/21 05:26 Calcium 8.4 mg/dL (8.4-10.2) 10/15/21 07:11 Magnesium 1.70 mg/dL (1.7-2.3) 10/15/21 01:27 Total Creatine Kinase 136 units/L (55-170) 10/15/21 01:27 CK-MB (CK-2) 1.3 ng/mL (0.0-4.0) 10/15/21 01:27 CK-MB (CK-2) Rel Index 0.9 (0-4) 10/15/21 01:27 Troponin T < 0.010 ng/mL (0.00-0.029) 10/15/21 15:15 NT-Pro-B Natriuret Pep 70.73 pg/mL (0-900) 10/15/21 01:27 Triglycerides 31 mg/dL (2-149) 10/15/21 12:31 Cholesterol 140 mg/dL (50-199) 10/15/21 12:31 LDL Cholesterol Direct 83 mg/dL (50-130) 10/15/21 12:31 HDL Cholesterol 54 mg/dL (40-59) 10/15/21 12:31 Cholesterol/HDL Ratio 2.59 % 10/15/21 12:31 TSH 2.690 mlU/mL (0.270-4.200) 10/15/21 01:27 Free T4 1.10 ng/dL (0.76-1.46) 10/15/21 01:27 Urine Opiates Screen Presumptive negative 10/15/21 02:00 Urine Methadone Screen Presumptive negative 10/15/21 02:00 Ur Barbiturates Screen Presumptive negative 10/15/21 02:00 Ur Phencyclidine Scrn Presumptive negative 10/15/21 02:00 Ur Amphetamines Screen Presumptive negative 10/15/21 02:00 U Benzodiazepines Scrn Presumptive negative 10/15/21 02:00 Urine Cocaine Screen Presumptive negative 10/15/21 02:00 U Marijuana (THC) Screen Presumptive negative 10/15/21 02:00 Drugs of Abuse Note Disclamer 10/15/21 02:00 Cai/IV: Voiding Method Toilet Active Medications - Current Medications Current Medications: Generic Name Dose Route Start Last Admin Trade Name Freq PRN Reason Stop Dose Admin Acetaminophen 650 mg 10/15/21 05:09 Acetaminophen 325 Mg Tab PO Q6H PRN Pain, Mild (1-3) Aspirin 81 mg 10/15/21 10:00 10/16/21 09:37 Aspirin Ec 81 Mg Tab PO 81 mg QDAY SHYAM Administration Atorvastatin Calcium 40 mg 10/15/21 22:00 10/15/21 21:30 Atorvastatin 40 Mg Tab PO 40 mg QHS SHYAM Administration Dextrose 50 ml 10/15/21 05:09 Dextrose 50% In Water (25gm) 50 Ml Syringe IV Q30MIN PRN Hypoglycemia Protocol Heparin Sodium (Porcine) 5,000 unit 10/15/21 10:00 10/16/21 09:37 Heparin 5,000 Unit/1 Ml Vial SUB-Q 5,000 unit Q12HR SHYAM Administration Sodium Chloride 1,000 mls @ 100 mls/hr 10/15/21 05:15 10/16/21 00:22 Nacl 0.9% 1000 Ml IV 100 mls/hr DIRECT SHYAM Administration Insulin Human Lispro 0 unit 10/15/21 06:00 10/16/21 07:32 Insulin Lispro 100 Unit/Ml SUB-Q Not Given Q6HR [facility] Protocol Metoprolol Tartrate 25 mg 10/15/21 10:00 10/16/21 09:37 Metoprolol Tartrate 25 Mg Tab PO 25 mg BID SHYAM Administration Morphine Sulfate 2 mg 10/15/21 05:09 Morphine 4 Mg/1 Ml Inj IV Q5MIN PRN Chest Pain unrelieved by NTG Nitroglycerin 0.4 mg 10/15/21 05:09 Nitroglycerin 0.4 Mg Tab Subl SL Q5M PRN Chest Pain Pantoprazole Sodium 40 mg 10/15/21 07:30 10/16/21 09:37 Pantoprazole 40 Mg Tab PO 40 mg QDAC SHYAM Administration Sodium Chloride 10 ml 10/15/21 05:09 Sodium Chloride 0.9% 10 Ml Flush Syringe IV PRN PRN LINE FLUSH Tramadol HCl 50 mg 10/15/21 05:09 Tramadol 50 Mg Tab PO Q6H PRN Pain, Moderate (4-6)
[2021-10-16] MEDS ORDERED: ASPIRIN EC 325 MG TAB PO SCH (10:00)
--- NOTE | 2021-10-16 15:14 | Electrocardiograph Report ---
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
--- NOTE | 2021-10-16 15:22 | Electrocardiograph Report ---
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
--- NOTE | 2021-10-16 15:23 | Electrocardiograph Report ---
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
[2021-10-17] MEDS ORDERED: REGADENOSON 0.4 MG/5 ML INJ IV ONE (06:50)
--- NOTE | 2021-10-17 09:59 | Progress Note ---
Assessment and Plan Pt is a 50-year-old AA male with a hx of MD (in his 20s per pt report) and DM2 who presented with complaints of palpitations SVT Chest Pain H/o MD (in his 20s per pt report) ?CAD (pt is unsure of dx and/or any prior stent placement) DM2 H/o TIA (~2003 per pt report) Echo 10/15/2021-EF 55 to 60%. Mild diastolic dysfunction is present impaired relaxation pattern. Right ventricle systolic function is normal Lexicscan MPI Stress test 10/17/2021-No scintigraphic evidence for myocardial ischemia or scar. Normla LV size and function with no regional wall motion abnormalities Plan: Patient for stress test this a.m. Telemetry reviewed currently maintaining NSR. Will convert from Lopressor 25 mg p.o. twice daily to metoprolol XL 25 mg p.o. daily Patient had stress test negative for signs of ischemia. Cardiac status otherwise stable for discharge Patient is a follow-up appointment with Dr. Copeland, [facility] medical policy specialist, on 11/02/2021 at 3:15 PM in our [place] location. Phone #[phone] Pt seen in conjunction with Dr. Echols, who agrees with the assessment and plan of care. - Patient Problems (1) Chest pain Current Visit: Yes Status: Acute (2) Diabetes Current Visit: Yes Status: Acute (3) SVT (supraventricular tachycardia) Current Visit: Yes Status: Acute Subjective Date of service: 10/17/21 Principal diagnosis: SVT Interval history: Patient for stress test this a.m. Telemetry reviewed patient remains in normal sinus rhythm with no events Objective Vital Signs Temp Pulse Resp BP BP Pulse Ox 10/17/21 03:27 97.7 F 10/17/21 03:25 71 18 136/83 98 10/17/21 00:15 97.9 F 77 18 159/90 100 10/17/21 00:10 67 100 10/17/21 00:00 79 10/16/21 22:11 100 10/16/21 20:23 97.8 F 10/16/21 20:21 67 100 10/16/21 20:20 79 18 148/91 100 - Physical Examination General: No Apparent Distress HEENT: Positive: EOMI, Normocephaly Neck: Positive: neck supple, trachea midline. Negative: JVD/HJR Cardiac: Positive: Reg Rate and Rhythm Lungs: Positive: Normal Breath Sounds Neuro: Positive: Grossly Intact Abdomen: Positive: Soft. Negative: Tender Skin: Negative: Rash Musculoskeletal: No Pain Extremities: Present: upper extr. pulses, warm. Absent: edema - Imaging and Cardiology EKG: report reviewed, image reviewed Echo: report reviewed - Telemetry EKG Rhythm: Sinus Rhythm - EKG Sinus rhythms and dysrhythmias: sinus tachycardia
[2021-10-17] MEDS ORDERED: METOPROLOL SUCCINATE XL 25 MG TAB PO SCH (10:00)
--- NOTE | 2021-10-17 11:10 | Nuclear Medicine Report ---
APPROVED REPORT Exam: Nuclear Stress Test Indication: Chest pain [facility]: A[facility] Ht: 5 ft 4 in Wt: 125 lbs BSA: 1.60 m2 HR: 73 bpmBP: 149/85 mmHgBMI: 21.45 Rhythm: Sinus Rhythm Stress Test Details Stress Test: Pharmacologic stress testing performed using 0.4 mg of regadenoson per 5 mL given IV over 10 seconds. Reason for pharmacologic stress test: physical limitation. HR Resting HR: 70 bpm Max HR Achieved: 108 bpm Max Heart Rate (APMHR): 169.138380 bpm Target HR (85% APMHR): 143.048735 bpm % of APMHR: 63.91 Recovery HR: 94 bpm HR response to stress: Normal HR response to stress BP Resting BP: 128/82 mmHg Max BP: 157/94 mmHg Recovery BP: 140/85 mmHg BP response to stress: Normal blood pressure response to stress. ECG Resting ECG: Sinus Rhythm Stress ECG: Sinus Tachycardia Arrhythmia: None Recovery ECG: Sinus Rhythm Recovery Arrhythmia: None Clinical Reason for Termination: Completed protocol Stress Symptoms: None NM EXAM: Myocardial Perfusion REST/STRESS Imaging Protocol: Rest Tc-99m/Stress Tc-99m 1 day Resting Data Rest SPECT myocardial perfusion imaging was performed in supine position 45 minutes following the intravenous injection of 10 mCi of Tc-99m Myoview. Time of rest injection: 0700 Pharmacologic Stress Pharmacologic stress test was performed by injecting Regadenoson 0.4 mg IV push followed by the intravenous injection of 28 mCi of Tc-99m Myoview. Time of stress injection: 0900 Gated Stress SPECT was performed 30 minutes after stress injection. The images were gated to evaluate regional wall motion and calculate left ventricular ejection fraction. Study Quality Study: excellent Lung Uptake: Normal Study Data TID = 1.08. Perfusion Wall Motion The rest and stress images show normal left ventricular wall motion.Normal left ventricular size and function with no regional wall motion abnormalities. Nuclear Conclusion ECG Findings: negative for ischemia Clinical Findings: negative for ischemia Nuclear Findings: negative for ischemia Exercise Capacity: not assessed Left Ventricular Function: normal Risk Study: low Normal study. No scintigraphic evidence for myocardial ischemia or scar. Normal left ventricular size and function with no regional wall motion abnormalities.
--- NOTE | 2021-10-17 11:28 | Discharge Summary ---
Providers - Providers Date of Admission: 10/15/21 05:09 Date of discharge: 10/17/21 Attending physician: NOEMI LOWERY MD 10/15/21 Consult to Cardiac Rehabilitation [CONS] Routine Reason For Exam: Phase I 10/15/21 05:09 Consult to Cardiology [CONS] Routine Consulting Provider: ULISSES LAMA Reason For Exam: svt Consult to Dietitian/Nutrition [CONS] Routine Physician Instructions: Reason For Exam: Reason for Consult: Diet education Primary care physician: STORMY HENSON Hospitalization Reason for admission: chest pain Condition: Fair Hospital course: History of Present Illness: 50-year-old male with history of PR, diabetes, heart murmur was brought to the emergency room because of chest pain and palpitations. Patient states he was at rest watching television when he suddenly developed shortness of breath palpitations and twisting pain in the middle of his chest. The patient was found to be tachycardic at 169 bpm by his . EMS was called and arrived on scene to find the patient in SVT. Patient broke the SVT by performing vagal maneuvers with EMS. In the ED the patient states he feels mostly improved but still has occasional intermittent discomfort in his chest. Patient denies history of SVT in the past Hospital Course: 10/15: Trend troponin, pending echo ordered. Will follow for cardiology eval. Possible discharge tomorrow a.m. 10/16: cardiology recommends NM stress, NPO midnight. 10/17: Stress test negative. patient clear for discharge. Will send rx for metoprolol and advised patient to follow up OP for EP eval for ablation. Also recommended he establish with endocrinology. Patient can return to work in 2 weeks. Assessment and Plan: #Paroxysmal SVT (supraventricular tachycardia) Current Visit: Yes Status: Acute Plan to address problem: Metoprolol 25 mg p.o. twice daily. We will do the serial cardiac enzymes. Echocardiogram. Cardiology evaluation cardiology recommends NM stress, NPO midnight. #ACS (acute coronary syndrome) Current Visit: Yes Status: Acute Plan to address problem: Admit the patient to the medical telemetry. Aspirin 81 mg p.o. daily. Lipitor 40 mg p.o. daily. Nitroglycerin as needed. Metoprolol 25 mg p.o. twice daily. Troponin 0.01, trend every 6h Echocardiogram. Cardiology evaluation, cardiology recommends NM stress. NPO midnight. #CAD (coronary artery disease) Current Visit: Yes Status: Acute Plan to address problem: Medications as above Serial cardiac enzymes. Echocardiogram. Cardiology evaluation #History of PR #Type 2 Diabetes with Hyperglycemia - hemoglobin A1c: - home regimen: Unknown - current regimen: Moderate SSI - blood glucose goal 140-180 while inpatient - continue to monitor #History of heart murmur #Advance care planning Disease education conducted, care plan discussed, diagnoses discussed, prognosis discussed, patient is full code, patient acknowledges understanding and agree with care plan, discussed about patient clinical course and answered all questions to satisfaction. +30 minutes. +30 minutes. Disposition: HOME / SELF CARE / HOMELESS Final Discharge Diagnosis (Prints w/discharge instructions): supraventricular tachycardia Time spent for discharge: 35 Core Measure Documentation - Palliative Care Palliative Care/ Comfort Measures: Not Applicable - Core Measures Any of the following diagnoses?: none Exam - Constitutional Vitals: Temp Pulse Resp BP Pulse Ox 97.7 F 71 18 136/83 98 10/17/21 03:27 10/17/21 03:25 10/17/21 03:25 10/17/21 03:25 10/17/21 03:25 Plan Additional Instructions: 50-year-old male with history of PR, diabetes, heart murmur was brought to the emergency room because of chest pain and palpitations. Patient states he was at rest watching television when he suddenly developed shortness of breath palpitations and twisting pain in the middle of his chest. The patient was found to be tachycardic at 169 bpm by his . EMS was called and arrived on scene to find the patient in SVT. Patient broke the SVT by performing vagal maneuvers with EMS. In the ED the patient states he feels mostly improved but still has occasional intermittent discomfort in his chest. Patient denies history of SVT in the past. Hospital Course: 10/15: Trend troponin, pending echo ordered. Will follow for cardiology eval. Possible discharge tomorrow a.m. 10/16: cardiology recommends NM stress, NPO midnight. 10/17: Stress test negative. patient clear for discharge. Will send rx for metoprolol and advised patient to follow up OP for EP eval for ablation. Also recommended he establish with endocrinology. Patient can return to work in 2 weeks. Assessment and Plan: #Paroxysmal SVT (supraventricular tachycardia). Current Visit: Yes Status: Acute. Plan to address problem: Metoprolol 25 mg p.o. twice daily. We will do the serial cardiac enzymes. Echocardiogram. Cardiology evaluation. cardiology recommends NM stress, NPO midnight. #ACS (acute coronary syndrome). Current Visit: Yes Status: Acute. Plan to address problem: Admit the patient to the medical telemetry. Aspirin 81 mg p.o. daily. Lipitor 40 mg p.o. daily. Nitroglycerin as needed. Metoprolol 25 mg p.o. twice daily. Troponin 0.01, trend every 6h. Echocardiogram. Cardiology evaluation, cardiology recommends NM stress. NPO midnight. #CAD (coronary artery disease). Current Visit: Yes Status: Acute. Plan to address problem: Medications as above. Serial cardiac enzymes. Echocardiogram. Cardiology evaluation. #History of PR. #Type 2 Diabetes with Hyperglycemia. - hemoglobin A1c: - home regimen: Unknown. - current regimen: Moderate SSI. - blood glucose goal 140-180 while inpatient. - continue to monitor. #History of heart murmur. #Advance care planning. Disease education conducted, care plan discussed, diagnoses discussed, prognosis discussed, patient is full code, patient acknowledges understanding and agree with care plan, discussed about patient clinical course and answered all questions to satisfaction. +30 minutes. +30 minutes. Follow up with: STORMY HENSON MD [Primary Care Provider] - 7 Days FOREST RODRIGUEZ MD [Staff Physician] - 7 Days Prescriptions: Metoprolol Xl [Metoprolol SUCCINATE ER TAB] 25 mg PO QDAY 30 Days #30 tablet
[2021-10-17 11:29] VITALS: BP 140/91
[2021-10-17] MEDS: INSULIN LISPRO 100 UNIT/ML SUB-Q SCH ×2 (11:30→16:09)
[2021-10-17] MEDS: HEPARIN 5,000 UNIT/1 ML VIAL SUB-Q SCH (16:08)
[2021-10-17] MEDS: PANTOPRAZOLE 40 MG TAB PO SCH (16:08)
[2021-10-17] MEDS: ASPIRIN EC 81 MG TAB PO SCH (16:09)
== END 2021-10-17 17:00 | disposition home or self-care (01) | DRG 309 ==
LOC: ED 00:29 → 4A 05:09
PROVIDERS: ADMIT Hospitalist; ATTEND Internal Medicine
DX: I47.1 Supraventricular tachycardia (principal); I24.9 Acute ischemic heart disease, unspecified; I25.10 Atherosclerotic heart disease of native coronary artery without angina pectoris; I25.2 Old myocardial infarction; E11.9 Type 2 diabetes mellitus without complications; Z82.49 Family history of ischemic heart disease and other diseases of the circulatory system; E78.5 Hyperlipidemia, unspecified
CPT/HCPCS: 36415; 71045; 78452; 80048; 80061; 80307; 82550; 82553; 82962; 83735; 83880; 84439; 84443; 84484; 85025; 93005; 93017; 93306; G0378; A9502; C8929; J1644; J2270; J2785; J7030